=== PATIENT | female | born 1985 | race Native Hawaiian/Other Pacific Islander ===

== ENCOUNTER 2022-12-08 11:16 | Emergency (ER) | payer OTHER, SELFPAY ==
[2022-12-08 11:22] VITALS: BP 141/79; PULSE 70; RESP 18; TEMP 36; O2SAT 100; BMI 21.5
--- NOTE | 2022-12-08 11:27 | PC.NURSE ---
Noticed lump on front/right of her neck , saw provider at [facility] in clinic, [facility], . States it feels like that lump in your throat you get before crying. Denies pain or redness.
--- NOTE | 2022-12-08 11:50 | DI.CT.S_ITS ---
PROCEDURE: CT SOFT TISSUE NECK W CON INDICATIONS: neck swelling/lump TECHNIQUE: After the administration of intravenous contrast, 3.0 mm axial sections acquired from the sella to the aortic arch. Additional oblique axial 3.0 mm sections acquired through the pharynx. 3 mm thick coronal and sagittal reformats were generated. For radiation dose reduction, the following was used: automated exposure control. COMPARISON: None. FINDINGS: Image quality: Excellent. Lymph nodes: No enlarged lymph nodes seen throughout the neck. Vessels: Visualized vasculature appears patent. Neck spaces: The oropharynx, nasopharynx, and pharynx demonstrate no mucosal lesions. The vocal cords, false vocal cords, pyriform sinuses, epiglottis, vallecula, and tongue base all appear normal. Extramucosal spaces appear unremarkable. Glands: The parotid and submandibular glands appear normal. In the right thyroid gland there is a nodule measuring 2.9 x 2.7 x 3.7 centimeters corresponding to area of palpable abnormality. Centrally the nodule is hypodense with peripheral areas of enhancement. There is a smaller nodule located posteriorly in the right gland measuring up to 0.9 centimeters (2/51, 4/56), which may be contiguous with the larger nodule. Miscellaneous: Visualized brain and orbits appear normal. Right lower lobe triangular-shaped sub fissural 5 mm nodule (2/94), likely intrapleural lymph node. No other suspicious nodule. Superficial soft tissues appear normal. Bones: No suspicious bony lesions. Visualized sinuses and mastoids appear unremarkable. IMPRESSION: Right thyroid gland nodule measuring up to 3.7 centimeters corresponding to area of palpable concern. Recommend further evaluation with thyroid ultrasound. Dictated by: Sara Zhu M.D. on 12/08/2022 at 12:56 Approved by: Sara Zhu M.D. on 12/08/2022 at 13:05
--- NOTE | 2022-12-08 12:01 | ED.SKABFB ---
HPI - Skin/Abscess/Foreign Bdy <Keren Lynn PA-C - Last Filed: 12/08/22 19:00> General Chief complaint: Skin/Abscess/Foreign Body Stated complaint: R/ side lump in neck, with shoulder pain Time Seen by Provider: 12/08/22 11:55 Source: patient Mode of arrival: Ambulatory Limitations: no limitations History of Present Illness HPI narrative: 37-year-old female with no reported past medical history presents to the ED with 5 days of right-sided neck mass along with some right-sided shoulder pain. Patient was evaluated by her PCP, sent to the ED for further evaluation, given patient's symptoms seem to be rapidly worsening. Patient states that she noticed the neck mass about 5 days ago, that it has been growing quite rapidly. Patient states that it is not painful, however it is uncomfortable, and that she is also feeling some pain down the right trapezius. Patient states that she has had no difficulty swallowing, has no trouble breathing. Patient denies fever, chills, sore throat, cough, chest pain, shortness of breath, nausea, vomiting. Related Data Allergies Allergy/AdvReac Type Severity Reaction Status Date / Time No Known Drug Allergies Allergy Verified 12/08/22 11:22 Review of Systems <Keren Lynn PA-C - Last Filed: 12/08/22 19:00> Review of Systems ROS Unobtainable: All systems reviewed & are unremarkable except as noted in HPI and below Constitutional Constitutional: Denies chills, Denies fatigue, Denies fever(s), Denies frequent falls, Denies lethargy and Denies weakness Eyes Eyes: Denies change in vision, Denies eye discharge, Denies irritation and Denies loss of vision ENT Ears, Nose, Mouth, and Throat: Denies change in voice, Denies dizziness, Reports neck mass, Denies neck pain, Denies sore throat and Denies throat swelling Cardiovascular Cardiovascular: Denies chest pain, Denies irregular heart rhythm, Denies lightheadedness, Denies palpitations, Denies dyspnea, Denies dyspnea on exertion and Denies orthopnea Respiratory Respiratory: Denies cough, Denies dyspnea, Denies dyspnea on exertion and Denies wheezing Gastrointestinal Gastrointestinal: Denies abdominal pain, Denies change in bowel habits, Denies diarrhea, Denies nausea and Denies vomiting Genitourinary Genitourinary: Denies hematuria, Denies flank pain, Denies urinary incontinence and Denies urinary urgency Musculoskeletal Musculoskeletal: Denies back pain, Denies muscle weakness, Denies neck pain, Denies numbness and Denies tingling Integumentary/Breasts Skin/Breast: Denies pruritus, Denies erythema, Denies rash and Denies wounds Neurologic Neurologic: Denies behavioral changes, Denies confusion, Denies dizziness, Denies frequent falls, Denies loss of vision, Denies numbness, Denies tingling and Denies weakness Psychiatric Psychiatric: Denies anxiety, Denies behavioral changes, Denies confusion, Denies depression, Denies homicidal ideation and Denies suicidal ideation Endocrine Endocrine: Denies fatigue, Denies flushing and Denies palpitations Hematologic/Lymphatic Hematologic/Lymphatic: Denies easy bruising Allergic/Immunologic Allergic/Immunologic: Denies urticaria, Denies throat swelling and Denies wheezing Patient History <Keren Lynn PA-C - Last Filed: 12/08/22 19:00> Social History Smoking Status: Never smoker Smoking Status: Never smoker alcohol intake frequency: holidays/special occasions only Substance Use Type: does not use Exam <Keren Lynn PA-C - Last Filed: 12/08/22 19:00> Narrative Exam Narrative: Const General:?cooperative, healthy appearing and comfortable [facility] Head:?normal to inspection Ears:?hearing grossly normal bilaterally Nose:?external nose normal Face and sinus:?normal facial exam and sinuses nontender Mouth:?oral mucosae normal; no drooling, patient is managing secretions well Throat:?posterior oropharynx normal; airway is patent Eyes General:?appearance normal, both eyes and all related structures Neck: There is a visible and palpable right-sided neck lump potentially of the thyroid. It is not tender to palpation. There is no tenderness to palpation of the right trapezius. Resp Effort & Inspection:?normal respiratory effort Auscultation:?clear to auscultation bilaterally Cardio Rate:?regular rate Rhythm:?regular rhythm Neuro General:?patient alert, patient awake and patient oriented x3 Initial Vital Signs Initial Vital Signs: Vital Signs Temperature 96.8 F L 12/08/22 11:22 Pulse Rate 70 12/08/22 11:22 Respiratory Rate 18 08/22/23 11:22 Blood Pressure 141/79 H 12/08/22 11:22 Pulse Oximetry 100 12/08/22 11:22 Oxygen Delivery Method Room Air 12/08/22 11:22 <Serena Hanna DO - Last Filed: 12/15/22 22:02> Initial Vital Signs Initial Vital Signs: Vital Signs Temperature 96.8 F L 12/08/22 11:22 Pulse Rate 70 12/08/22 11:22 Respiratory Rate 18 12/08/22 11:22 Blood Pressure 141/79 H 12/08/22 11:22 Pulse Oximetry 100 12/08/22 11:22 Oxygen Delivery Method Room Air 12/08/22 11:22 Course <Keren Lynn PA-C - Last Filed: 12/08/22 19:00> Orders Ordered: ED Orders 12/08/22 11:35 Complete Blood Count AUTO DIFF Stat Comprehensive Metabolic Panel Stat TSH w/ Reflex to FT4 Stat 12/08/22 11:50 CT soft tissue neck w con Stat Vital Signs Vital signs: Vital Signs - 8 hr 12/08/22 11:22 12/08/22 13:32 Temperature 96.8 F L Pulse Rate 70 74 Respiratory Rate 18 Blood Pressure 141/79 H 111/68 Pulse Oximetry 100 100 Oxygen Delivery Method Room Air Room Air <Serena Hanna DO - Last Filed: 12/15/22 22:02> Orders Ordered: ED Orders 12/08/22 11:35 Complete Blood Count AUTO DIFF Stat Comprehensive Metabolic Panel Stat TSH w/ Reflex to FT4 Stat 12/08/22 11:50 CT soft tissue neck w con Stat Vital Signs Vital signs: Vital Signs - 8 hr 12/08/22 11:22 12/08/22 13:32 Temperature 96.8 F L Pulse Rate 70 74 Respiratory Rate 18 Blood Pressure 141/79 H 111/68 Pulse Oximetry 100 100 Oxygen Delivery Method Room Air Room Air MDM - Skin/Abscess/Foreign Bdy <Keren Lynn PA-C - Last Filed: 12/08/22 19:00> Lab Data 12/08/22 11:35 12/08/22 11:35 Labs: Lab Results 12/08/22 12/08/22 12/08/22 Range/Units 11:35 11:35 11:35 WBC 7.5 (4.5-11.0) X10^3/uL RBC 4.75 (4.0-5.2) X10^6/uL Hgb 13.8 (12.0-16.0) g/dL Hct 41.0 (36-46) % MCV 86.3 (80-100) fL MCH 28.9 (26-34) PG MCHC 33.5 (30-36) % RDW 13.4 (11.6-14.8) % Plt Count 264 (150-400) X10^3/uL Neut % (Auto) 69.7 (50-75) % Lymph % (Auto) 23.7 L (25-40) % [place] % (Auto) 3.9 (3-14) % Eos % (Auto) 1.8 L (2-4) % Baso % (Auto) 0.9 (0-2) % Neut # (Auto) 5200 (3016-1710) /uL Lymph # (Auto) 1800 (5007-4890) /uL [place] # (Auto) 300 (0-900) /uL Eos # (Auto) 100 (0-450) /uL Baso # (Auto) 100 (0-100) /uL Sodium 138 (137-145) mmol/L Potassium 3.3 L (3.4-5.1) mmol/L Chloride 104 (98-107) mmol/L Carbon Dioxide 27 (22-32) mmol/L BUN 11 (7-17) mg/dL Creatinine 0.71 (0.52-1.04) mg/dL Estimated GFR > 60 (>60) mL/min BUN/Creatinine Ratio 15.5 (6-22) Glucose 94 (70-100) mg/dL Calcium 9.4 (8.4-10.2) mg/dL Total Bilirubin 0.7 (0.2-1.3) mg/dL AST 27 (14-36) IU/L ALT 16 (<35) IU/L Alkaline Phosphatase 62 (38-126) U/L Total Protein 7.9 (6.3-8.2) g/dL Albumin 4.4 (3.5-5.0) g/dL Globulin 3.5 (1.7-4.1) g/dL Albumin/Globulin Ratio 1.3 (1.0-2.8) TSH 0.71 (0.47-4.68) uIU/mL MDM Narrative Medical decision making narrative: 37-year-old female with no reported past medical history presents to the ED with 5 days of right-sided neck mass along with some right-sided shoulder pain. Concern for cyst versus abscess versus thyroid nodule versus other. Will obtain labs, TSH, CT neck. Labs and TSH within normal limits. The CT shows a right thyroid gland nodule measuring up to 3.7 cm corresponding to the area of palpable concern. There is also a smaller nodule located posteriorly in the right gland measuring up to 0.9 cm which may be contiguous with the larger nodule. Discussed findings with patient. Patient agrees to follow-up with a concrete conveyor operator for further evaluation with an ultrasound and biopsy. Recommend follow-up with PCP for further referrals. Discussed ED return precautions with patient. Patient verbalized understanding. Medical records reviewed: Yes; records from [facility] were obtained and reviewed. <Serena Hanna, - Last Filed: 12/15/22 22:02> Lab Data Labs: Lab Results 12/08/22 12/08/22 12/08/22 Range/Units 11:35 11:35 11:35 WBC 7.5 (4.5-11.0) X10^3/uL RBC 4.75 (4.0-5.2) X10^6/uL Hgb 13.8 (12.0-16.0) g/dL Hct 41.0 (36-46) % MCV 86.3 (80-100) fL MCH 28.9 (26-34) PG MCHC 33.5 (30-36) % RDW 13.4 (11.6-14.8) % Plt Count 264 (150-400) X10^3/uL Neut % (Auto) 69.7 (50-75) % Lymph % (Auto) 23.7 L (25-40) % [place] % (Auto) 3.9 (3-14) % Eos % (Auto) 1.8 L (2-4) % Baso % (Auto) 0.9 (0-2) % Neut # (Auto) 5200 (1937-5843) /uL Lymph # (Auto) 1800 (8889-3603) /uL [place] # (Auto) 300 (0-900) /uL Eos # (Auto) 100 (0-450) /uL Baso # (Auto) 100 (0-100) /uL Sodium 138 (137-145) mmol/L Potassium 3.3 L (3.4-5.1) mmol/L Chloride 104 (98-107) mmol/L Carbon Dioxide 27 (22-32) mmol/L BUN 11 (7-17) mg/dL Creatinine 0.71 (0.52-1.04) mg/dL Estimated GFR > 60 (>60) mL/min BUN/Creatinine Ratio 15.5 (6-22) Glucose 94 (70-100) mg/dL Calcium 9.4 (8.4-10.2) mg/dL Total Bilirubin 0.7 (0.2-1.3) mg/dL AST 27 (14-36) IU/L ALT 16 (<35) IU/L Alkaline Phosphatase 62 (38-126) U/L Total Protein 7.9 (6.3-8.2) g/dL Albumin 4.4 (3.5-5.0) g/dL Globulin 3.5 (1.7-4.1) g/dL Albumin/Globulin Ratio 1.3 (1.0-2.8) TSH 0.71 (0.47-4.68) uIU/mL Discharge Plan Departure Patient Disposition: Home Clinical Impression: Thyroid nodule Instructions: DI for Thyroid Nodule Activity Restrictions/Additional Instructions: You were evaluated in the ED today for a neck mass. Your labs and thyroid values were normal. The CT scan did show a right sided thyroid gland nodule measuring up to 3.7 cm, and there is a smaller nodule measuring up to 0.9 cm. You will need follow-up with endocrinology for further evaluation, thyroid ultrasound and possible biopsy. Please follow-up with your PCP for the appropriate referrals. It is reassuring that you are not having any troubles breathing or swallowing. If that changes and your symptoms worsen, please return to the ED as soon as possible. Referrals: Leandro Pina MD [Primary Care Provider] - Stand Alone Forms: Patient Portal/API <Serena Hanna DO - Last Filed: 12/15/22 22:02> Cosign ED Attending Rodgerature Attestation: I was immediately available in the department for consultation. Documentation has been reviewed.
[2022-12-08 12:22] LABS: Add Manual Diff / Slide Review NO; Basophils Absolute Auto 100 /uL (0-100); Basophils Percent Auto 0.9 % (0-2); Eosinophils Absolute Auto 100 /uL (0-450); Eosinophils Percent Auto 1.8 % (2-4); Hemoglobin 13.8 g/dL (12.0-16.0); Lymphocytes Absolute Auto 1800 /uL (1100-4500); Lymphocytes Percent Auto 23.7 % (25-40); Mean Corpuscular HGB Conc 33.5 % (30-36); Mean Corpuscular Hemoglobin 28.9 PG (26-34); Mean Corpuscular Volume 86.3 fL (80-100); Monocytes Absolute Auto 300 /uL (0-900); Monocytes Percent Auto 3.9 % (3-14); Neutrophils Absolute Auto 5200 /uL (1500-7000); Neutrophils Percent Auto 69.7 % (50-75); Platelet Count 264 X10^3/uL (150-400); Red Blood Cell Count 4.75 X10^6/uL (4.0-5.2); Red Cell Distribution Width 13.4 % (11.6-14.8); White Blood Cell Count 7.5 X10^3/uL (4.5-11.0)
[2022-12-08 12:32] LABS: Alanine Aminotransferase 16 IU/L (<35); Albumin 4.4 g/dL (3.5-5.0); Albumin Globulin Ratio 1.3 (1.0-2.8); Alkaline Phosphatase 62 U/L (38-126); Aspartate Aminotransferase 27 IU/L (14-36); BUN Creatinine Ratio 15.5 (6-22); Bilirubin Total 0.7 mg/dL (0.2-1.3); Blood Urea Nitrogen 11 mg/dL (7-17); Calcium 9.4 mg/dL (8.4-10.2); Carbon Dioxide 27 mmol/L (22-32); Chloride 104 mmol/L (98-107); Estimated Glomerular Filt Rate > 60 mL/min (>60); Globulin 3.5 g/dL (1.7-4.1); Glucose 94 mg/dL (70-100); HEMOLYSIS < 15 (0-50); Potassium 3.3 mmol/L (3.4-5.1); Sodium 138 mmol/L (137-145); Total Protein 7.9 g/dL (6.3-8.2)
[2022-12-08 13:02] LABS: TSH w/ Reflex to FT4 0.71 uIU/mL (0.47-4.68)
[2022-12-08 13:32] VITALS: BP 111/68; PULSE 74; O2SAT 100
== END 2022-12-08 13:32 | disposition home or self-care (01) ==
PROVIDERS: Emergency Medicine; Emergency Provider Student in an Organized Health Care Education/Training Program; PCP Internal Medicine
DX: E04.1 Nontoxic single thyroid nodule (principal)
CPT/HCPCS: 70491; 80053; 84443; 85025; 99281; 99284; Q9967